=== PATIENT | female | born 1975 | race Caucasian/White ===

== ENCOUNTER 2023-02-06 09:15 | Outpatient (CLI) | payer OTHER, SELFPAY | END 2023-02-06 09:16 | disposition home or self-care (01) | PROVIDERS: PCP Physician Assistant Medical; Visit Provider Family Medicine | DX: Z00.00 Encounter for general adult medical examination without abnormal findings (principal); R03.0 Elevated blood-pressure reading, without diagnosis of hypertension; E66.9 Obesity, unspecified; Z13.6 Encounter for screening for cardiovascular disorders; Z13.29 Encounter for screening for other suspected endocrine disorder | CPT/HCPCS: 80053; 80061; 84443 ==

== ENCOUNTER 2023-03-21 08:04 | Outpatient (CLI) | payer BC, SELFPAY | END 2023-03-21 08:05 | disposition home or self-care (01) | LOC: NFLDREF 03-31 06:18 | PROVIDERS: PCP Physician Assistant Medical; Referring Provider Physician Assistant Medical; Visit Provider Physician Assistant Medical | DX: N39.0 Urinary tract infection, site not specified (principal); N30.01 Acute cystitis with hematuria | CPT/HCPCS: 87086; 87186 ==

== ENCOUNTER 2023-04-07 06:10 | Outpatient (CLI) | payer BC, SELFPAY ==
[2023-04-07 06:48] LABS: Ur HCG Qualitative* Negative (Negative)
--- NOTE | 2023-04-07 08:07 | W.ANESCHARGE ---
Anesthesia Charges Start Date/Time Anesthesia Start Date: 04/07/23 Anesthesia Start Time: 07:15 Stop Date/Time Anesthesia Stop Date: 04/07/23 Anesthesia Stop Time: 07:38
--- NOTE | 2023-04-07 08:09 | W.ANESCHARGE ---
Anesthesia Charges Start Date/Time Anesthesia Start Date: 04/07/23 Anesthesia Start Time: 07:15 Stop Date/Time Anesthesia Stop Date: 04/07/23 Anesthesia Stop Time: 07:38
== END 2023-04-07 06:11 | disposition home or self-care (01) ==
LOC: OP CLINIC 06:11
PROVIDERS: PCP Physician Assistant Medical; Visit Provider Internal Medicine
DX: Z12.11 Encounter for screening for malignant neoplasm of colon (principal); K63.5 Polyp of colon
CPT/HCPCS: 00811; 45380; 81025; 88305; J2704

== ENCOUNTER 2023-05-10 07:30 | Outpatient (CLI) | payer BC, SELFPAY ==
--- NOTE | 2023-05-10 07:45 | MM_ITS ---
Patient: MARI MULLINS Facility:?[facility] RIS Patient ID:?[id number] Site Patient ID:?[id number]. Site :?[id number] Study:?XRay-Breast Bilateral 3D W/CAD-05/10/2023 8:02:37 AM Ordering Physician:?Maisha Chatman Final Report: BILATERAL SCREENING MAMMOGRAM WITH COMPUTER-AIDED DETECTION AND TOMOSYNTHESIS TECHNIQUE: CC and MLO views were obtained. These mammographic images have been obtained using full-field digital technique. These mammographic images were interpreted with the benefit of computer-aided detection. Breast Tomosynthesis was used in this interpretation. COMPARISON FILM: 10/19/2017. FINDINGS: There are scattered areas of fibroglandular density. IMPRESSION: There is no radiographic evidence for malignancy. ASSESSMENT: BI-RADS Category 1: Negative RECOMMENDATION: Routine screening mammogram in 1 year. A lay language report of this examination will be provided to the patient. Stanley Whelan M.D. Diagnostic Radiologist [email or web address] DSM/sp R& Transcribed: 2:20 p.m. SP/Dictated by: Stanley Whelan MD @ 05/10/2023 8:41:00 AM Signed by:?Stanley Whelan MD @05/10/2023 2:26:26 PM (Electronic Signature)
== END 2023-05-10 07:31 | disposition home or self-care (01) ==
LOC: MAMMO 07:32
PROVIDERS: PCP Physician Assistant Medical; Visit Provider Family Medicine
DX: Z12.31 Encounter for screening mammogram for malignant neoplasm of breast (principal)
CPT/HCPCS: 77063; 77067

== ENCOUNTER 2024-03-27 15:36 | Outpatient (CLI) | payer BC, SELFPAY | END 2024-03-27 15:37 | disposition home or self-care (01) | PROVIDERS: PCP Physician Assistant Medical; Visit Provider Physician Assistant Medical | DX: E78.5 Hyperlipidemia, unspecified (principal); Z13.29 Encounter for screening for other suspected endocrine disorder | CPT/HCPCS: 80053; 80061; 84443 ==

== ENCOUNTER 2025-03-11 16:09 | Outpatient (CLI) | payer BC, SELFPAY ==
--- NOTE | 2025-03-11 16:40 | CRLHL7_ITS ---
For Patients: As a result of the Century Cures Act, medical imaging exams and procedure reports are released immediately into your electronic medical record. You may view this report before your referring provider. If you have questions, please contact your health care provider. INDICATION: BILATERAL SCREENING MAMMOGRAM, ASYMPTOMATIC 49 Y/O FEMALE COMPARISON: 05/10/2023, 10/19/2017, 10/25/2007 TECHNIQUE: Digital mammogram in CC and MLO projections including computer-aided detection (CAD) and tomosynthesis. BREAST COMPOSITION: There are scattered areas of fibroglandular density. FINDINGS: No suspicious findings. ASSESSMENT: BI-RADS 1 Negative RECOMMENDATION: Annual screening mammogram. A lay language report of this examination will be provided to the patient. Dictated by: Stanley Whelan MD @ 03/12/2025 09:53:27 (Electronically Signed)
== END 2025-03-11 16:10 | disposition home or self-care (01) ==
LOC: MAMMO 16:10
PROVIDERS: PCP Physician Assistant Medical; Visit Provider Physician Assistant Medical
DX: Z12.31 Encounter for screening mammogram for malignant neoplasm of breast (principal)
CPT/HCPCS: 77063; 77067